=== PATIENT | male | born 1960 | race Caucasian/White ===

== ENCOUNTER 2020-09-01 13:21 | Outpatient (CLI) | payer MEDICARE, SELFPAY | END 2020-09-01 13:22 | disposition home or self-care (01) | LOC: ANHCOVIDVC 13:21 | PROVIDERS: PCP Emergency Medicine | DX: Z23 Encounter for immunization (principal) | CPT/HCPCS: 0001A; 91300 ==

== ENCOUNTER 2020-09-22 13:20 | Outpatient (CLI) | payer MEDICARE, SELFPAY | END 2020-09-22 13:21 | disposition home or self-care (01) | LOC: ANHCOVIDVC 13:20 | PROVIDERS: PCP Emergency Medicine | DX: Z23 Encounter for immunization (principal) | CPT/HCPCS: 0002A; 91300 ==

== ENCOUNTER 2023-05-26 10:19 | Outpatient (CLI) | payer MEDICARE, SELFPAY ==
--- NOTE | 2023-05-26 10:36 | ECG_ITS ---
Measurements Intervals [place] Rate: 90 P: 68 WI: 160 QRS: -43 QRSD: 116 T: 53 QT: 387 QTc: 474 Interpretive Statements SINUS RHYTHM LEFTWARD AXIS BORDERLINE ECG NO PREVIOUS ECG AVAILABLE FOR COMPARISON Electronically Signed On 05-26-2023 10:49:11 SENIOR ERP CONSULTANT by Tyler Lee M.D.
== END 2023-05-26 10:20 | disposition home or self-care (01) ==
LOC: ANHSURGERY 10:25
PROVIDERS: PCP Emergency Medicine; Visit Provider Urology
DX: Z12.5 Encounter for screening for malignant neoplasm of prostate (principal); I10 Essential (primary) hypertension; Z01.818 Encounter for other preprocedural examination
CPT/HCPCS: 87086; 93005

== ENCOUNTER 2023-05-30 01:28 | Day surgery (SDC) | payer MEDICARE, SELFPAY ==
[2023-05-25 13:56] VITALS: BMI 27.1
--- NOTE | 2023-05-25 14:15 | SUR.PREOP ---
Report to the Outpatient Waiting Room, entrance under the green pavilion located off [facility], at time 1000 on date 05/30/23. Planned Procedure Time: 1200. Time changes happen often and if your time is changed the preop area will call you the afternoon before. - You and your visitor will be asked to self-screen and do not enter if you have any COVID symptoms. - A mask is optional within the hospital at this time. Patients may have clear liquids (water, carbonated beverages, clear teas, apple juice) until 3 hours prior to surgery with a maximum of 20 ounces. - No food from midnight until time of surgery Take the following medications with a SIP of water the morning of surgery: PERCOCET IF NEEDED DO NOT STOP ANY OF YOUR OTHER PRESCRIPTION MEDICATIONS PRIOR TO SURGERY ?EXCEPT THE FOLLOWING Medications to discontinue per physician STOP ALL VITAMINS AND SUPPLIMENTS 3 DAYS PRIOR TO PROCEDURE Date to take last dose 05/27/23 Please no make-up, nail telugu, hairspray, perfume, deodorant, or body powder the day of surgery. No jewelry (including any body piercings) or valuables the day of surgery, leave them at home. Please take a shower or bath the night before, or the morning of, surgery with an antibacterial soap. Wear comfortable, loose fitting clothing. Children are encouraged to wear pajamas. - Jewelry must be removed prior to entering the operating room. Rings and piercings that are not removed may be cut off. - The hospital will not accept responsibility for valuables. - Please leave all valuables, including medications, at home the day of surgery. If you are going home after surgery, a licensed lift driver must drive you home. - NO public transportation without another adult if you receive anesthesia. - We recommend that an adult stay with you for 24 hours following discharge. - We also recommend that you do not drive, make important decision, drink alcoholic beverages, or take any drugs that were not prescribed by your health care provider for at least 24 hours after your discharge time. Follow any additional instructions given to you from your surgeon. If you or anyone in your household have experienced Covid symptoms in the past week, please notify your surgeon or the nurse liaison at the phone number below for possible testing. Telephone instructions given to FRANCES HERNANDEZ and asked if any additional questions and then verbalized understanding. Patient advised to call surgeon office or pre surgery nurse liaison [phone] if any additional questions.
[2023-05-30 10:00] VITALS: BP 171/98; PULSE 99; RESP 16; TEMP 36.7; O2SAT 97
[2023-05-30] MEDS: LACTATED RINGERS 1,000 ML 30 ML IV CONT ×2 (10:00→12:21)
--- NOTE | 2023-05-30 11:30 | P.PNAN_ITS ---
Anes - Initial Pre Proc Eval Procedure: Operation Date: 05/30/23 11:45 Proposed Procedures p Trans Rectal Ultrasound Fusion Guided Prostate Biopsy - Isaías Mendez MD Date/Time: 05/30/23 11:30 Surgeon: Isaías Mendez MD Pre Op Diagnosis: Elev PSA Patient Data Age: 63 Gender: M Height: 1.83 m Weight: 86.6 kg Last Vital Signs Temp 36.7 C 05/30/23 10:00 Pulse 99 05/30/23 10:00 Resp 16 05/30/23 10:00 BP 171/98 H 05/30/23 10:00 Pulse Ox 97 05/30/23 10:00 O2 Del Method Room Air 05/30/23 10:00 Allergies Allergy/AdvReac Type Severity Reaction Status Date / Time No Known Allergies Allergy Verified 05/30/23 11:10 Home Medications Medication Instructions Recorded Confirmed Type cholecalciferol (vitamin D3) 50 2,000 unit PO DAILY 08/22/19 05/30/23 History mcg (2,000 unit) capsule baclofen 10 mg tablet See Rx Instructions .Route 09/21/22 05/30/23 Rx .COMPLEX #120 tabs diclofenac sodium 50 mg See Rx Instructions .Route 12/05/22 05/30/23 Rx tablet,delayed release .COMPLEX #180 tabs lisinopril 40 mg tablet See Rx Instructions .Route 01/10/23 05/30/23 Rx .COMPLEX #90 tabs tamsulosin 0.4 mg capsule See Rx Instructions .Route 02/07/23 05/30/23 Rx .COMPLEX #90 caps oxycodone-acetaminophen 5 mg-325 1 tablet PO Q6H PRN pain #60 tabs 05/04/23 05/30/23 Rx mg tablet (Percocet) Patient hx anesthesia problems: none Family hx anesthesia problems: none Results Review: All pre-operative results and documents have been reviewed as part of the pre-operative evaluation. [facility] Past Medical History Medical History Hypertension Vitamin D deficiency disease Family History Family History Father Family history of pancreatic cancer Malignant neoplasm of prostate Mother Hypertension Social History Social History Smoking status: Never smoker Smoking end date: 06/19/88 Alcohol intake: current Current Housing: Decline to Answer Concerned About Future Housing: Decline to Answer Difficulty Paying Gas/Electric Bills: Decline to Answer Difficulty Paying for Meds: Decline to Answer Currently Unemployed: Decline to Answer Education: Decline to Answer Difficulty w/ Childcare or Family Care: Decline to Answer Living arrangements: alone Spiritual care concerns: No Anes - Eval Final PreProcedure Day of Procedure 05/30/23 11:30 Patient weight: normal Heart: regular rate and rhythm Lungs: clear to auscultation Airway: Mallampati scale class II Neurological: alert and oriented Last oral intake: >/= 8 hours ASA classification: III Emergent: no Anesthetic plan: proceed Anesthesia type and monitoring: general LMA and standard monitoring Results Review: All pre-operative results and documents have been reviewed as part of the pre- operative evaluation. Informed Consent: The patient's anesthetic plan and its attendant risks and benefits were discussed with the patient/family/POA. Questions were solicited and answers provided to the satisfaction of the patient/fa
--- NOTE | 2023-05-30 11:33 | WPDHPUPDATE1 ---
History and Physical Update Update Date/Time: 05/30/23 11:33 History and Physical has been reviewed, including an updated exam of the patient. There are NO changes in the patient's condition. Risks, benefits, and alternatives have been discussed and questions answered. Patient agrees to proceed with procedure. Proceed with uronav TRUS and prostate biopsy
[2023-05-30] MEDS: ceFAZolin 2 GM/D5W 50 ML 2 GM/50 ML BAG IVPB (11:54)
--- NOTE | 2023-05-30 12:16 | W.PM.PROC2 ---
Procedure Note - Detailed Date of Procedure 05/30/23 Pre-op Diagnosis Elev PSA Post-op Diagnosis Same Procedure Performed Uronav us and prostate biospy Surgeon Isaías Mendez MD Anesthesia General Description of Procedure Patient is taken to the operative suite correctly identified. Once anesthesia was obtained he was in the left lateral decubitus position. Transrectal ultrasound was performed in the MRI image was fused to the ultrasound image. I took 4 cores from the region of interest. Standard 12 core biopsy was then performed. Patient tolerated procedure well without any complications and was taken recovery stable condition. He will call for path results in 1 week. This completes dictation on this patient. Please send a copy of this op note to my office Estimated Blood Loss 0 Drains No Packing No Pathology Yes Complications No immediate complications Condition Stable Disposition PACU
[2023-05-30 12:21] VITALS: BP 106/67; PULSE 99; RESP 16; O2SAT 98
[2023-05-30 12:50] VITALS: BP 109/78; PULSE 85; RESP 16; O2SAT 97
[2023-05-30 13:20] VITALS: BP 112/75; PULSE 77; RESP 18; O2SAT 99
== END 2023-05-30 13:45 | disposition home or self-care (01) ==
PROVIDERS: PCP Emergency Medicine; Visit Provider Urology
PROC: (CPT 55700; principal; 2023-05-30 11:45)
DX: R97.20 Elevated prostate specific antigen [PSA] (principal); I10 Essential (primary) hypertension; E55.9 Vitamin D deficiency, unspecified
CPT/HCPCS: 55700; 76872; G0416; J0690; J2704; J3010; J7120